=== PATIENT | female | born 1965 | race Caucasian/White ===

== ENCOUNTER 2019-08-16 14:04 | Inpatient (IN) | payer MEDICAID, SELFPAY ==
[~2019-08-16] VITALS: Ht 170.2 cm; Wt 65.8 kg
[2019-08-16 14:16] VITALS: BP_SYST 157
[2019-08-16] MEDS ORDERED: IBUP-1969 PO (14:16)
[2019-08-16] MEDS ORDERED: VANCOMYCIN HCL 1,000 MG in D5W 250 ML IV ONE (14:30)
[2019-08-16] MEDS ORDERED: PIPERACILLIN/TAZO 3.38 GM in D5W 50 ML IV ONE (14:30)
[2019-08-16] MEDS ORDERED: PIPERACILLIN/TAZOBACTAM 3.375 GM/VIAL (ZOSYN) IV ONE (15:01)
[2019-08-16 15:04] LABS: BASOPHILS % (AUTO) 0.5 % (0.0-2.0); EOSINOPHILS # (AUTO) 0.1 K/uL (0.0-0.4); EOSINOPHILS % (AUTO) 1.2 % (0.0-4.0); HEMATOCRIT 36.8 % (36-48); HEMOGLOBIN 12.3 g/dL (12.0-16.0); LYMPHOCYTES # (AUTO) 1.6 K/uL (1.0-5.5); LYMPHOCYTES % (AUTO) 20.6 % (20.5-51.5); MEAN CORPUSCULAR HEMOGLOBIN 31 pg (27-31); MEAN CORPUSCULAR HGB CONC 34 % (32-36); MEAN CORPUSCULAR VOLUME 92 fL (79.0-98.0); MONOCYTES # (AUTO) 0.5 K/uL (0.0-1.0); MONOCYTES % (AUTO) 6.9 % (1.7-9.3); NEUTROPHILS # (AUTO) 5.6 K/uL (1.8-7.7); NEUTROPHILS % (AUTO) 70.8 % (40.0-70.0); PLATELET COUNT (AUTO) 342 K/uL (130-430); RED BLOOD CELL COUNT(AUTO) 3.99 MIL/uL (4.2-6.2); RED CELL DISTRIBUTION WIDTH 13.5 % (9.0-15.0); WHITE BLOOD COUNT (AUTO) 7.9 K/uL (4.8-10.8)
[2019-08-16 15:05] LABS: CALCIUM 8.2 mg/dL (8.4-11.0); CREATININE 0.8 mg/dL (0.55-1.30); POTASSIUM 3.5 mmol/L (3.5-5.1)
[2019-08-16 15:09] LABS: PROTHROMBIN TIME 10.5 SECS (9.5-12.5)
[2019-08-16 15:10] LABS: ALBUMIN 3.4 g/dL (3.4-4.8); TOTAL BILIRUBIN 0.5 mg/dL (0.0-1.0)
[2019-08-16 15:34] LABS: COLOR,URINE YELLOW (YELLOW); GLUCOSE,URINE NEGATIVE (NEGATIVE); KETONES,URINE NEGATIVE (NEGATIVE); LEUKOCYTE ESTERASE ,URINE NEGATIVE (NEGATIVE); NITRITE, URINE NEGATIVE (NEGATIVE); PH,URINE 5.5 (5.0-8.0); PROTEIN URINE 2+ (NEGATIVE)
[2019-08-16 15:47] LABS: BILIRUBIN,URINE NEGATIVE (NEGATIVE); BLOOD, URINE TRACE (NEGATIVE); CLARITY/URINE HAZY (CLEAR)
[2019-08-16 15:48] LABS: RBC,URINE 0-3 /HPF (0-3)
[2019-08-16 15:49] LABS: BACTERIA,URINE FEW /HPF (None Seen); MUCUS,URINE None Seen /LPF (None Seen); WBC,URINE 0-3 /HPF (0-3)
[2019-08-16] MEDS ORDERED: VANCOMYCIN HCL 1000 MG/VIAL IV ONE (16:20)
[2019-08-16 16:36] LABS: BARBITURATE, URINE NEGATIVE (NEG <=200)
[2019-08-16 16:37] LABS: BENZODIAZEPINE, URINE NEGATIVE (NEG <=150); CANNABINOID, URINE POSITIVE (NEG <=50); COCAINE, URINE NEGATIVE (NEG <=150); METHAMPHETAMINES SCREEN,URINE POSITIVE (NEG <=500); OPIATE, URINE POSITIVE (NEG <=100); PHENCYCLIDINE SCREEN,URINE POSITIVE (NEG <=25); UR TRICYCLIC ANTIDEPRESSANTS NEGATIVE (NEG <=300); URINE AMPHETAMINE POSITIVE (NEG <=500); URINE METHADONE NEGATIVE (NEG <=200); URINE OXYCODONE SCREEN NEGATIVE (NEG <=100); URINE PROPOXYPHENE SCREEN NEGATIVE (NEG <=300)
[2019-08-16] MEDS: NACL 0.9% 1,000 ML IV SCH ×2 (17:14→22:50)
[2019-08-16 20:12] VITALS: BP_SYST 132
[2019-08-16] MEDS ORDERED: ONDANSETRON HCL 4 MG/2 ML VIAL IVP PRN (20:30)
[2019-08-16] MEDS ORDERED: MUPIROCIN 2% TOPICAL OINTMENT 22 GM NS PRN (20:30)
[2019-08-16] MEDS ORDERED: DOCUSATE SODIUM 100 MG CAPSULE PO PRN (20:30)
[2019-08-16] MEDS ORDERED: ACETAMINOPHEN 325 MG TABLET PO PRN (20:30)
[2019-08-16] MEDS ORDERED: POTASSIUM CHLORIDE 20 MEQ TAB.PRT.SR PO PRN (20:30)
[2019-08-16] MEDS ORDERED: MORPHINE 2 MG/ML INJ. SYRINGE IVP PRN ×2 (20:30)
[2019-08-16] MEDS ORDERED: MAGNESIUM SULFATE 50 ML IV PRN (20:30)
[2019-08-16] MEDS ORDERED: ZOLPIDEM TARTRATE 5 MG TABLET PO PRN (20:30)
[2019-08-16] MEDS: HYDROcodone/ACETAMIN 10-325 MG TAB PO PRN (21:00)
[2019-08-17] MEDS: HYDROcodone/ACETAMIN 10-325 MG TAB PO PRN ×3 (05:34→21:10)
[2019-08-17 07:35] LABS: BASOPHILS # (AUTO) 0.1 K/uL (0.0-0.2); EOSINOPHILS # (AUTO) 0.2 K/uL (0.0-0.4); HEMATOCRIT 34.7 % (36-48); HEMOGLOBIN 11.7 g/dL (12.0-16.0); LYMPHOCYTES # (AUTO) 1.3 K/uL (1.0-5.5); LYMPHOCYTES % (AUTO) 19.2 % (20.5-51.5); MEAN CORPUSCULAR HEMOGLOBIN 31 pg (27-31); MEAN CORPUSCULAR HGB CONC 34 % (32-36); MEAN CORPUSCULAR VOLUME 93 fL (79.0-98.0); MONOCYTES # (AUTO) 0.4 K/uL (0.0-1.0); MONOCYTES % (AUTO) 5.7 % (1.7-9.3); NEUTROPHILS # (AUTO) 4.9 K/uL (1.8-7.7); NEUTROPHILS % (AUTO) 71.1 % (40.0-70.0); PLATELET COUNT (AUTO) 306 K/uL (130-430); RED BLOOD CELL COUNT(AUTO) 3.74 MIL/uL (4.2-6.2); RED CELL DISTRIBUTION WIDTH 13.2 % (9.0-15.0); WHITE BLOOD COUNT (AUTO) 6.9 K/uL (4.8-10.8)
[2019-08-17 07:44] LABS: CALCIUM 7.8 mg/dL (8.4-11.0); CREATININE 0.67 mg/dL (0.55-1.30); POTASSIUM 3.6 mmol/L (3.5-5.1)
[2019-08-17 08:00] VITALS: BP_SYST 158
[2019-08-17] MEDS ORDERED: VANCOMYCIN HCL 750 MG in NS 250 ML IV SCH (09:00)
[2019-08-17] MEDS ORDERED: DIATR MEGLU/DIATRIZ SOD 30 ML SOLUTION PO ONE (09:18)
[2019-08-17] MEDS ORDERED: IOHEXOL 100 ML IV ONE (11:51)
[2019-08-17 12:00] VITALS: BP_SYST 137
[2019-08-17] MEDS: NACL 0.9% 1,000 ML IV SCH ×2 (12:18→21:56)
[2019-08-17 16:07] VITALS: BP_SYST 139
[2019-08-17 19:20] VITALS: BP_SYST 142
[2019-08-17] MEDS: ceFAZolin SODIUM 1 GM in D5W 50 ML IV SCH (21:10)
[2019-08-17] MEDS: metroNIDAZOLE 250 mg/NS 50 ML IV SCH (21:53)
[2019-08-18 00:30] VITALS: BP_SYST 154
[2019-08-18] MEDS: ceFAZolin SODIUM 1 GM in D5W 50 ML IV SCH ×3 (05:12→21:22)
[2019-08-18] MEDS: metroNIDAZOLE 250 mg/NS 50 ML IV SCH ×3 (05:46→21:56)
[2019-08-18 07:47] LABS: BASOPHILS # (AUTO) 0.1 K/uL (0.0-0.2); EOSINOPHILS # (AUTO) 0.1 K/uL (0.0-0.4); EOSINOPHILS % (AUTO) 2.3 % (0.0-4.0); HEMATOCRIT 35.4 % (36-48); HEMOGLOBIN 11.9 g/dL (12.0-16.0); LYMPHOCYTES # (AUTO) 1.1 K/uL (1.0-5.5); LYMPHOCYTES % (AUTO) 17.7 % (20.5-51.5); MEAN CORPUSCULAR HEMOGLOBIN 31 pg (27-31); MEAN CORPUSCULAR HGB CONC 34 % (32-36); MEAN CORPUSCULAR VOLUME 92 fL (79.0-98.0); MONOCYTES # (AUTO) 0.4 K/uL (0.0-1.0); MONOCYTES % (AUTO) 6.7 % (1.7-9.3); NEUTROPHILS # (AUTO) 4.6 K/uL (1.8-7.7); NEUTROPHILS % (AUTO) 72.3 % (40.0-70.0); PLATELET COUNT (AUTO) 313 K/uL (130-430); RED BLOOD CELL COUNT(AUTO) 3.85 MIL/uL (4.2-6.2); WHITE BLOOD COUNT (AUTO) 6.4 K/uL (4.8-10.8)
[2019-08-18] MEDS: NACL 0.9% 1,000 ML IV SCH ×2 (07:54→13:30)
[2019-08-18 08:00] VITALS: BP_SYST 153
[2019-08-18 08:00] LABS: CREATININE 0.69 mg/dL (0.55-1.30); POTASSIUM 3.7 mmol/L (3.5-5.1)
[2019-08-18] MEDS ORDERED: fentaNYL CITRATE/PF 100 MCG/2 ML AMP IVP PRN (10:30)
[2019-08-18] MEDS ORDERED: ONDANSETRON HCL 4 MG/2 ML VIAL IVP PRN (10:30)
[2019-08-18] MEDS ORDERED: SEVOFLURANE 15 MIN GAS INH ONE (10:50)
[2019-08-18] MEDS ORDERED: MIDAZOLAM HCL 5 MG/ML VIAL (VERSED) IV ONE (10:50)
[2019-08-18] MEDS ORDERED: NS IRRIG SOLN 1000 ML IR ONE (10:50)
[2019-08-18] MEDS ORDERED: BUPIVACAINE /PF 0.25% 30 ML VIAL INJ ONE (10:50)
[2019-08-18] MEDS ORDERED: LR 1,000 ML IV.SOLN IV ONE (10:50)
[2019-08-18] MEDS ORDERED: PROPOFOL 200MG/ 20ML VIAL (DIPRIVAN) IV ONE (10:50)
[2019-08-18] MEDS ORDERED: fentaNYL CITRATE/PF 100 MCG/2 ML AMP ONE ×2 (10:50→11:33)
[2019-08-18] MEDS: fentaNYL CITRATE/PF 100 MCG/2 ML AMP IVP PRN ×2 (11:17→11:26)
[2019-08-18 12:49] VITALS: BP_SYST 122
[2019-08-18] MEDS: HYDROcodone/ACETAMIN 10-325 MG TAB PO PRN ×2 (14:26→21:22)
[2019-08-18 16:30] VITALS: BP_SYST 140
[2019-08-18 19:50] VITALS: BP_SYST 147
[2019-08-19 00:28] VITALS: BP_SYST 127
[2019-08-19] MEDS: LORazepam 2 MG/ML VIAL IVP PRN (04:53)
[2019-08-19] MEDS: NACL 0.9% 1,000 ML IV SCH ×2 (04:56→20:58)
[2019-08-19] MEDS: ceFAZolin SODIUM 1 GM in D5W 50 ML IV SCH ×3 (05:04→20:57)
[2019-08-19] MEDS: metroNIDAZOLE 250 mg/NS 50 ML IV SCH ×3 (06:07→23:02)
[2019-08-19 06:27] LABS: BASOPHILS % (AUTO) 0.7 % (0.0-2.0); EOSINOPHILS # (AUTO) 0.1 K/uL (0.0-0.4); EOSINOPHILS % (AUTO) 1.6 % (0.0-4.0); HEMATOCRIT 35.2 % (36-48); HEMOGLOBIN 11.9 g/dL (12.0-16.0); LYMPHOCYTES # (AUTO) 1.2 K/uL (1.0-5.5); LYMPHOCYTES % (AUTO) 22.2 % (20.5-51.5); MEAN CORPUSCULAR HEMOGLOBIN 31 pg (27-31); MEAN CORPUSCULAR HGB CONC 34 % (32-36); MEAN CORPUSCULAR VOLUME 92 fL (79.0-98.0); MONOCYTES # (AUTO) 0.4 K/uL (0.0-1.0); MONOCYTES % (AUTO) 7.4 % (1.7-9.3); NEUTROPHILS # (AUTO) 3.8 K/uL (1.8-7.7); NEUTROPHILS % (AUTO) 68.1 % (40.0-70.0); PLATELET COUNT (AUTO) 310 K/uL (130-430); RED BLOOD CELL COUNT(AUTO) 3.84 MIL/uL (4.2-6.2); WHITE BLOOD COUNT (AUTO) 5.6 K/uL (4.8-10.8)
[2019-08-19 06:35] LABS: CALCIUM 7.9 mg/dL (8.4-11.0); CREATININE 0.84 mg/dL (0.55-1.30); POTASSIUM 3.5 mmol/L (3.5-5.1)
[2019-08-19 08:00] VITALS: BP_SYST 145
[2019-08-19] MEDS ORDERED: MORPHINE 4 MG/ML INJ. SYRINGE IVP PRN ×2 (08:30)
[2019-08-19] MEDS: HYDROcodone/ACETAMIN 10-325 MG TAB PO PRN ×2 (09:13→18:26)
[2019-08-19 12:35] VITALS: BP_SYST 150
[2019-08-19 16:58] VITALS: BP_SYST 143
[2019-08-19 20:30] VITALS: BP_SYST 142
[2019-08-20 00:03] VITALS: BP_SYST 143
[2019-08-20] MEDS: LORazepam 2 MG/ML VIAL IVP PRN ×2 (03:16→20:59)
[2019-08-20] MEDS: ceFAZolin SODIUM 1 GM in D5W 50 ML IV SCH ×3 (05:37→21:01)
[2019-08-20] MEDS: metroNIDAZOLE 250 mg/NS 50 ML IV SCH ×3 (06:04→21:57)
[2019-08-20 06:57] LABS: BASOPHILS # (AUTO) 0.1 K/uL (0.0-0.2); BASOPHILS % (AUTO) 0.9 % (0.0-2.0); EOSINOPHILS # (AUTO) 0.1 K/uL (0.0-0.4); EOSINOPHILS % (AUTO) 2.2 % (0.0-4.0); HEMATOCRIT 35.9 % (36-48); HEMOGLOBIN 12.1 g/dL (12.0-16.0); LYMPHOCYTES # (AUTO) 1.3 K/uL (1.0-5.5); LYMPHOCYTES % (AUTO) 20.3 % (20.5-51.5); MEAN CORPUSCULAR HEMOGLOBIN 31 pg (27-31); MEAN CORPUSCULAR HGB CONC 34 % (32-36); MEAN CORPUSCULAR VOLUME 92 fL (79.0-98.0); MONOCYTES # (AUTO) 0.4 K/uL (0.0-1.0); MONOCYTES % (AUTO) 6.9 % (1.7-9.3); NEUTROPHILS # (AUTO) 4.3 K/uL (1.8-7.7); NEUTROPHILS % (AUTO) 69.7 % (40.0-70.0); PLATELET COUNT (AUTO) 313 K/uL (130-430); RED BLOOD CELL COUNT(AUTO) 3.91 MIL/uL (4.2-6.2); RED CELL DISTRIBUTION WIDTH 13.4 % (9.0-15.0); WHITE BLOOD COUNT (AUTO) 6.2 K/uL (4.8-10.8)
[2019-08-20 07:23] LABS: CREATININE 0.69 mg/dL (0.55-1.30); POTASSIUM 3.8 mmol/L (3.5-5.1)
[2019-08-20 08:00] VITALS: BP_SYST 151
[2019-08-20 10:24] VITALS: BP_SYST 151
[2019-08-20] MEDS: NACL 0.9% 1,000 ML IV SCH ×2 (10:57→21:04)
[2019-08-20] MEDS ORDERED: CEPH-568 PO (13:27)
[2019-08-20 19:30] VITALS: BP_SYST 145
[2019-08-21 00:52] VITALS: BP_SYST 131
[2019-08-21] MEDS: ceFAZolin SODIUM 1 GM in D5W 50 ML IV SCH (05:43)
[2019-08-21] MEDS: metroNIDAZOLE 250 mg/NS 50 ML IV SCH (06:32)
[2019-08-21 06:35] LABS: BASOPHILS # (AUTO) 0.3 K/uL (0.0-0.2); BASOPHILS % (AUTO) 4.4 % (0.0-2.0); EOSINOPHILS # (AUTO) 0.2 K/uL (0.0-0.4); EOSINOPHILS % (AUTO) 2.2 % (0.0-4.0); HEMATOCRIT 37.5 % (36-48); HEMOGLOBIN 12.7 g/dL (12.0-16.0); LYMPHOCYTES % (AUTO) 14.1 % (20.5-51.5); MEAN CORPUSCULAR HEMOGLOBIN 31 pg (27-31); MEAN CORPUSCULAR HGB CONC 34 % (32-36); MEAN CORPUSCULAR VOLUME 92 fL (79.0-98.0); MONOCYTES # (AUTO) 0.4 K/uL (0.0-1.0); MONOCYTES % (AUTO) 5.7 % (1.7-9.3); NEUTROPHILS % (AUTO) 73.6 % (40.0-70.0); PLATELET COUNT (AUTO) 345 K/uL (130-430); WHITE BLOOD COUNT (AUTO) 6.8 K/uL (4.8-10.8)
[2019-08-21 07:31] LABS: CALCIUM 8.3 mg/dL (8.4-11.0); CREATININE 0.7 mg/dL (0.55-1.30); POTASSIUM 3.7 mmol/L (3.5-5.1)
[2019-08-21 08:00] VITALS: BP_SYST 151
[2019-08-21 12:27] VITALS: BP_SYST 137
== END 2019-08-21 14:10 | disposition home or self-care (01) | DRG 382 ==
LOC: SED 14:04 → SMU 17:07 → OBSVTOIN 08-18 18:31 → EEVIPCON 08-18 18:31
PROVIDERS: ADMIT General Practice; ATTEND General Practice
PROC: 0HB5XZX Excision of Chest Skin, External Approach, Diagnostic (ICD-10-PCS; principal; 2019-08-18 10:00)
DX: C50.412 Malignant neoplasm of upper-outer quadrant of left female breast (principal); E87.1 Hypo-osmolality and hyponatremia; C56.9 Malignant neoplasm of unspecified ovary; R65.10 Systemic inflammatory response syndrome (SIRS) of non-infectious origin without acute organ dysfunction; C76.3 Malignant neoplasm of pelvis; N61.1 Abscess of the breast and nipple; F15.10 Other stimulant abuse, uncomplicated; F12.10 Cannabis abuse, uncomplicated; F16.10 Hallucinogen abuse, uncomplicated; R59.0 Localized enlarged lymph nodes; F11.10 Opioid abuse, uncomplicated; F17.210 Nicotine dependence, cigarettes, uncomplicated; Z80.3 Family history of malignant neoplasm of breast; Z80.41 Family history of malignant neoplasm of ovary; Z80.8 Family history of malignant neoplasm of other organs or systems; Z03.818 Encounter for observation for suspected exposure to other biological agents ruled out
CPT/HCPCS: 36415; 71045; 71260-TC; 76641; 80048; 80053; 80307; 81000-TC; 83036; 83605; 83735-TC; 84484; 84702-TC; 85025; 85610-TC; 85730-TC; 86886; 86900; 86901; 87040-TC; 87081; 87086; 88307; 88341; 88342; 88361; 93005; 93306; 96365; 96367; 99285; G0378; J0690; J2060; J2250; J2270; J2543; J2704; J3010; J3370; J3490; J7030; J7050; J7060; J7120; Q9964; Q9967; U0003-CS